=== PATIENT | female | born 1960 | race Caucasian/White ===

== ENCOUNTER 2017-10-27 22:54 | Inpatient (IN) | payer OTHER ==
[~2017-10-27] VITALS: Ht 165.1 cm; Wt 68.0 kg
[2017-10-27] MEDS ORDERED: DIGOXIN (22:56)
[2017-10-27] MEDS ORDERED: METOPROLOL (22:56)
[2017-10-27 22:59] VITALS: BP 114/74
[2017-10-27 23:12] LABS: ABSOLUTE BASOPHILS 0.1 thou/uL (0.0-0.2); ABSOLUTE EOSINOPHILS 0.2 thou/uL (0.0-0.7); ABSOLUTE LYMPHOCYTES 3.1 thou/uL (0.8-5.3); ABSOLUTE MONOCYTES 0.7 thou/uL (0.0-1.2); ABSOLUTE NEUTROPHILS 4.8 thou/uL (1.6-8.1); BASOPHILS 0.7 %; HEMATOCRIT 43.9 % (37.0-47.0); HEMOGLOBIN 14.3 gm/dL (12.0-15.0); LYMPHOCYTES 35.2 %; MCH 31.8 pg (26.0-34.0); MCHC 32.7 g/dL (28.0-37.0); MCV 97.4 fL (80.0-100.0); MONOCYTES 8.4 %; MPV 8.8 fl. (7.2-11.1); NUCLEATED RBCS 0 /100WBC; PLATELET COUNT* 318 thou/uL (150-400); POLYS 53.7 %; RBC 4.51 mil/uL (4.20-5.00); RDW-CV 12.9 % (10.5-14.5); WBC 8.9 thou/uL (4.0-11.0)
[2017-10-27 23:19] LABS: ANION GAP 10 mmol/L (7-16); BUN 10 mg/dL (7-18); CALCIUM 9.1 mg/dL (8.5-10.1); CHLORIDE 107 mmol/L (98-107); CO2 25 mmol/L (21-32); CREATININE 0.6 mg/dL (0.6-1.3); GLUCOSE 159 mg/dL (70-99); POTASSIUM 3.4 mmol/L (3.5-5.1); SODIUM 142 mmol/L (136-145)
[2017-10-27 23:23] LABS: URINE BILIRUBIN NEGATIVE (Negative); URINE BLOOD NEGATIVE (Negative); URINE CLARITY CLEAR; URINE COLOR STRAW; URINE GLUCOSE-RANDOM NEGATIVE (Negative); URINE KETONES NEGATIVE (Negative); URINE LEUKOCYTES-REFLEX 1+ (Negative); URINE NITRITE-REFLEX NEGATIVE (Negative); URINE PROTEIN NEGATIVE (Negative); URINE SPECIFIC GRAVITY <= 1.005 (1.005-1.030); URINE UROBILINOGEN 0.2 E.U./dl (0.2-1.0)
[2017-10-27 23:29] LABS: ALBUMIN 3.4 g/dL (3.4-5.0); ALKALINE PHOSPHATASE 99 U/L (46-116); NT-PRO BRAIN NAT PEPTIDE 58 pg/mL (<300); SGOT 15 U/L (15-37); SGPT 28 U/L (30-65); TOTAL BILIRUBIN 0.1 mg/dL (<0.1-1.0); TOTAL PROTEIN 6.9 g/dL (6.4-8.2); TROPONIN-I LEVEL <0.06 ng/mL (<0.06)
[2017-10-27 23:49] LABS: BACTERIA-REFLEX >30 Many /HPF (None Seen); SQUAMOUS 0-3 Few /LPF (0-3); URINE RBC 3-10 Few /HPF (0-2); URINE WBC-REFLEX 6-15 Few /HPF (0-5)
[2017-10-27 23:50] LABS: CASTS None Seen /LPF (None Seen); CRYSTALS None Seen /LPF (None Seen); MUCUS 0-3 Light strn/LPF (None Seen)
[2017-10-28 03:52] LABS: AMP/METHAMP Negative (Negative); BARBITURATES Negative (Negative); BENZODIAZEPINES Negative (Negative); COCAINE Negative (Negative); METHADONE Negative (Negative); OPIATES Negative (Negative); PCP Negative (Negative); THC Negative (Negative)
[2017-10-28 04:34] VITALS: BP 101/62
[2017-10-28 04:43] LABS: ABSOLUTE BASOPHILS 0.1 thou/uL (0.0-0.2); ABSOLUTE EOSINOPHILS 0.2 thou/uL (0.0-0.7); ABSOLUTE LYMPHOCYTES 3.1 thou/uL (0.8-5.3); ABSOLUTE MONOCYTES 0.7 thou/uL (0.0-1.2); ABSOLUTE NEUTROPHILS 4.6 thou/uL (1.6-8.1); BASOPHILS 0.9 %; HEMOGLOBIN 13.3 gm/dL (12.0-15.0); LYMPHOCYTES 36.2 %; MCH 32.5 pg (26.0-34.0); MCHC 33.3 g/dL (28.0-37.0); MCV 97.8 fL (80.0-100.0); MONOCYTES 7.9 %; MPV 8.8 fl. (7.2-11.1); NUCLEATED RBCS 0 /100WBC; PLATELET COUNT* 292 thou/uL (150-400); RBC 4.09 mil/uL (4.20-5.00); RDW-CV 13.3 % (10.5-14.5); WBC 8.7 thou/uL (4.0-11.0)
[2017-10-28 05:20] LABS: ALBUMIN 2.8 g/dL (3.4-5.0); ALKALINE PHOSPHATASE 80 U/L (46-116); ANION GAP 8 mmol/L (7-16); BUN 8 mg/dL (7-18); CALCIUM 8.3 mg/dL (8.5-10.1); CHLORIDE 112 mmol/L (98-107); CO2 24 mmol/L (21-32); CREATININE 0.5 mg/dL (0.6-1.3); GLUCOSE 103 mg/dL (70-99); POTASSIUM 4.3 mmol/L (3.5-5.1); SGOT 20 U/L (15-37); SGPT 27 U/L (30-65); SODIUM 144 mmol/L (136-145); TOTAL BILIRUBIN < 0.1 mg/dL (<0.1-1.0); TOTAL PROTEIN 5.4 g/dL (6.4-8.2)
[2017-10-28] MEDS ORDERED: ASPIR 8181 MG PO (10:16)
[2017-10-28] MEDS ORDERED: VENTOLIN HFA 1818 GM INH (10:16)
[2017-10-28] MEDS ORDERED: SINGULAIR 10 MG10 M1 PO (10:16)
[2017-10-28] MEDS ORDERED: LANOXIN 0.120.125 M1 PO (11:11)
[2017-10-28] MEDS ORDERED: DIGOXIN250 MCG PO (11:12)
[2017-10-28] MEDS ORDERED: LOPRESSOR25 PO (11:13)
[2017-10-28 12:44] VITALS: BP 113/58
[2017-10-28 12:45] VITALS: BP 116/60
[2017-10-28 16:10] VITALS: BP 115/63
--- NOTE | 2017-10-28 16:35 | 2DMMODE ---
[place] [address] 2 D/M-MODE ECHOCARDIOGRAM Name: PATEL DOOLEY Room: [address] IN [facility]#: [id number] Admission: 10/28/17 Attend Phys: Peewee Vera Discharge: Date of : 58 Date of Service: 10/28/17 1634 Report #: [id number] THIS REPORT FOR: //name// APPROVED REPORT Study performed: 10/28/2017 10:02:46 EXAM: Comprehensive 2D, Doppler, and color-flow Echocardiogram Patient Location: In-Patient Room #: er Status: routine BSA: 1.75 HR: 67 bpm BP: 113/66 mmHg Rhythm: NSR Other Information Study Quality: Good Indications SVT 2D Dimensions LVEF(%): 69.37 (>50%) IVSd: 7.28 (7-11mm) LVOT Diam: 19.55 (18-24mm) LVDd: 46.50 mm PWd: 9.91 (7-11mm) Ascending Ao: 31.99 (22-36mm) LVDs: 28.39 (25-40mm) Aortic Root: 31.25 mm Franco's LVEF: 69.37 % Volumes Left Atrial Volume (Systole) LA ESV Index: 19.90 mL/m2 Aortic Valve AoV Peak Benjamin.: 1.17 m/s AO Peak Gr.: 5.43 mmHg LVOT Max P.06 mmHg AO Mean Gr.: 3.11 mmHg LVOT Mean P.57 mmHg LVOT Max V: 1.01 m/s AO V2 VTI: 25.91 cm LVOT Mean V: 0.55 m/s FELIPE (VTI): 2.52 cm2 LVOT V1 VTI: 21.72 cm Mitral Valve E/A Ratio: 1.17 [place] [address] 2 D/M-MODE ECHOCARDIOGRAM Name: PATEL DOOLEY Room: [address] IN .R.#: [id number] Admission: 10/28/17 Attend Phys: Peewee Vera Discharge: Date of : 58 Date of Service: 10/28/17 1634 Report #: [id number] MV Decel. Time: 203.05 ms MV E Max Benjamin.: 0.88 m/s MV PHT: 58.88 ms MVA (PHT): 3.74 cm2 TDI E/Lateral E': 6.77 E/Medial E': 8.00 Medial E' Benjamin.: 0.11 m/s Lateral E' Benjamin.: 0.13 m/s Pulmonary Valve PV Peak Benjamin.: 0.90 m/s PV Peak Gr.: 3.27 mmHg Left Ventricle The left ventricle is normal size. There is normal LV segmental wall motion. There is normal left ventricular wall thickness. Left ventricular systolic function is normal. LVEF is 55-60%. The left ventricular diastolic function is normal. Right Ventricle The right ventricle is normal size. The right ventricular systolic function is normal. Atria The left atrium size is normal. The right atrium size is normal. Aortic Valve The aortic valve is normal in structure. No aortic regurgitation is present. There is no aortic valvular stenosis. Mitral Valve The mitral valve is normal in structure. There is no mitral valve regurgitation noted. No evidence of mitral valve stenosis. Tricuspid Valve The tricuspid valve is normal in structure. There is no tricuspid valve regurgitation noted. Pulmonic Valve The pulmonary valve is normal in structure. There is no pulmonic valvular regurgitation. Great Vessels The aortic root is normal in size. IVC is normal in size and collapses with >50% [place] [address] 2 D/M-MODE ECHOCARDIOGRAM Name: PATEL DOOLEY Room: [address] IN .R.#: [id number] Admission: 10/28/17 Attend Phys: Peewee Vera Discharge: Date of : 58 Date of Service: 10/28/17 1634 Report #: [id number] Pericardium There is no pericardial effusion. <Conclusion> The left ventricle is normal size. There is normal left ventricular wall thickness. Left ventricular systolic function is normal. LVEF is 55-60%. The left ventricular diastolic function is normal. <ELECTRONICALLY SIGNED> By: Abdirizak Tirado MD, FACC 10/28/17 1634 1634 1634 Abdirizak Tirado MD, FACC /INF
--- NOTE | 2017-10-28 17:29 | EKG ---
[place] [address] ELECTROCARDIOGRAM REPORT Name: PATEL DOOLEY Room: [address] IN [facility]#: [id number] Admission: 10/28/17 Attend Phys: Francois Severino Discharge: Date of : 58 Report #: [id number] THIS REPORT FOR: //name// [facility] ED Test Date: 2017-10-27 Test Time: 23:04:24 Pat Name: PATEL DOOLEY Department: Room: [facility] Gender: F Safety Compliance Specialist: VINNY Choi : 1960 Requested By: Tika Major Order Number: [id number] MD: Abdirizak Tirado Measurements Intervals [place] Rate: 95 P: 56 [place]: 167 QRS: -30 QRSD: 87 T: 14 QT: 336 QTc: 423 Interpretive Statements Sinus rhythm Left axis deviation Delayed R-wave progression No previous ECG available for comparison Electronically Signed On 10-28-2017 17:29:14 HAND ZIPPER TRIMMER by Abdirizak Tirado [email or web address] <ELECTRONICALLY SIGNED> By: Abdirizak Tirado MD, [facility] 10/28/17 1729 2304 2304 Abdirizak Tirado MD, FACC /EPI
[2017-10-28 20:00] VITALS: BP 92/53
[2017-10-28 21:25] VITALS: BP 109/69
[2017-10-29] VITALS: BP 104/54
[2017-10-29 02:07] LABS: GLYCOHEMOGLOBIN (HGB A1C) 5.6 % (4.8-5.6)
[2017-10-29 04:02] VITALS: BP 146/59
[2017-10-29 05:04] LABS: HEMATOCRIT 37.4 % (37.0-47.0); HEMOGLOBIN 12.4 gm/dL (12.0-15.0); MCH 32.4 pg (26.0-34.0); MCHC 33.2 g/dL (28.0-37.0); MCV 97.8 fL (80.0-100.0); MPV 9.3 fl. (7.2-11.1); RBC 3.82 mil/uL (4.20-5.00); RDW-CV 13.3 % (10.5-14.5); WBC 6.8 thou/uL (4.0-11.0)
[2017-10-29 05:15] LABS: CALCIUM 8.5 mg/dL (8.5-10.1); CREATININE 0.6 mg/dL (0.6-1.3); MAGNESIUM 1.7 mg/dL (1.8-2.4); POTASSIUM 4.1 mmol/L (3.5-5.1)
[2017-10-29 08:11] VITALS: BP 95/50
--- NOTE | 2017-10-29 12:28 | EKG ---
[place] [address] ELECTROCARDIOGRAM REPORT Name: PATEL DOOLEY Room: [address] ADM IN [facility].#: [id number] Admission: 10/28/17 Attend Phys: Francois Severino Discharge: Date of : 58 Report #: [id number] THIS REPORT FOR: //name// [facility] Test Date: 2017-10-28 Test Time: 21:28:00 Pat Name: PATEL DOOLEY Department: Room: [address] Gender: F Water Mechanic: JACEK : 1960 Requested By: Peewee Vera Order Number: [id number] Johana MD: Shaun Jones Measurements Intervals [place] Rate: 64 P: 70 [place]: 173 QRS: 10 QRSD: 94 T: 30 QT: 403 QTc: 416 Interpretive Statements Sinus rhythm Borderline low voltage, extremity leads Consider anterior infarct Compared to ECG 10/27/2017 23:04:24 no change Electronically Signed On 10-29-2017 12:28:48 J2EE ENGINEER by Shaun Jones [email or web address] <ELECTRONICALLY SIGNED> By: Shaun Jones MD, [facility] 10/29/171227 27 27 Shaun Jones MD, [facility] /EPI
--- NOTE | 2017-10-29 12:33 | EKG ---
[place] [address] ELECTROCARDIOGRAM REPORT Name: PATEL DOOLEY Room: [address] ADM IN [facility].#: [id number] Admission: 10/28/17 Attend Phys: Francois Severino Discharge: Date of : 58 Report #: [id number] THIS REPORT FOR: //name// [facility] Test Date: 2017-10-29 Test Time: 08:28:46 Pat Name: PATEL DOOLEY Department: Room: [address] Gender: F Air Chief Marshal: : 1960 Requested By: Abdirizak Tirado Order Number: [id number] Johana MD: Shaun Jones Measurements Intervals [place] Rate: 52 P: 67 [place]: 179 QRS: 61 QRSD: 95 T: 16 QT: 430 QTc: 400 Interpretive Statements Sinus bradycardia Electronically Signed On 10-29-2017 12:33:26 REMELT FURNACE EXPEDITER by Shaun Jones [email or web address] <ELECTRONICALLY SIGNED> By: Shaun Jones MD, [facility] 10/29/17 1233 0828 0828 Shaun Jones MD, FACC /EPI
[2017-10-29 12:44] VITALS: BP 123/63
[2017-10-29 15:48] VITALS: BP 130/67
--- NOTE | 2017-10-29 17:12 | CARDNUC ---
[place] [address] CARDIAC NUCLEAR IMAGING REPORT Name: DOOLEYPATEL Room: [address] IN [facility]#: [id number] Admission: 10/28/17 Attend Phys: Peewee Vera Discharge: Date of : 58 Date of Service: 10/29/17 1712 Report #: [id number] THIS REPORT FOR: //name// APPROVED REPORT Exam: Nuclear Stress Test Indication: Chest pain, svt Patient Location: In-Patient Room #: 201 Stress Tech: Belkys Verdugo Stress Nurse: Mariana Archuleta RN NM Tech:JAQUELINE Gilmore Ht: 5 ft 5 in Wt: 150 lbs BSA: 1.75 m2 BMI: 24.95 Medical History Medical History: svt, copd Allergies: sulfa, doxycycline, diltiazem, buprion Cardiac Risk Factors: age, smoking Physical Disabilities: general weakness Stress Test Details Stress Test: Pharmacologic stress testing performed using 0.4 mg of regadenoson per 5 mL given IV over 10 seconds. Reason for pharmacologic stress test: general weakness. HR Resting HR: 61 bpm Max Heart Rate (APMHR): 163 bpm Max HR Achieved: 100 bpm Target HR (85% APMHR): 138 bpm % of APMHR: 61 Recovery HR: 79 bpm BP Resting BP: 105/68 mmHg Max BP: 121/65 mmHg ECG Resting ECG: Sinus Rhythm, normal EKG Stress ECG: Sinus Rhythm, normal EKG ST Change: None Arrhythmia: None Recovery ECG: Sinus Rhythm, normal EKG Recovery ST Change: None Recovery Arrhythmia: [place] [address] CARDIAC NUCLEAR IMAGING REPORT Name: PATEL DOOLEY Nhan Room: [address]#: [id number] Admission: 10/28/17 Attend Phys: Peewee Vera Discharge: Date of : 58 Date of Service: 10/29/17 1712 Report #: [id number] Clinical Reason for Termination: Completed protocol Exercise duration: 0 min sec Exercise capacity: 1 METs Functional Aerobic Impairment 61% The patient tolerated Lexiscan infusion without significant symptoms. Nurse Comments pt tolerated well Stress ECG Conclusion The baseline 12-lead elect cardiac exam shows normal sinus rhythm with no significant ST or T-wave abnormalities. EKGs during and post Lexiscan infusion showed sinus rhythm with no significant ST or T wave changes when compared to baseline. There were no stress-induced arrhythmias. NM EXAM: Myocardial Perfusion REST/STRESS Imaging Protocol: Rest Tc-99m/Stress Tc-99m 1 day Resting Data Rest SPECT myocardial perfusion imaging was performed in supine position 30 minutes following the intravenous injection of 12.0 mCi of Tc-99m Sestamibi. Time of rest injection: 0950 Time of rest imagin The images were gated to evaluate regional wall motion and calculate left ventricular ejection fraction. Administration Route: IV Pharmacologic Stress Pharmacologic stress test was performed by injecting Regadenoson 0.4 mg IV push followed by the intravenous injection of 35.0 mCi of Tc-99m Sestamibi. Time of stress injection: 1115 Time of stress imagin Administration Route: IV Gated Stress SPECT was performed 40 minutes after stress injection. The images were gated to evaluate regional wall motion and calculate left ventricular ejection fraction. Prone imaging [place] [address] CARDIAC NUCLEAR IMAGING REPORT Name: PATEL DOOLEY Room: [address]#: [id number] Admission: 10/28/17 Attend Phys: Peewee Vera Discharge: Date of : 58 Date of Service: 10/29/17 1712 Report #: [id number] Study: Good Artifact: No artifact Study Data At rest, the left ventricular ejection fraction was 62%.. Post stress, the left ventricular ejection was 70%.. TID = 0.99. Perfusion There is a focal reversible defect of the apex of mild intensity. No other defects are identified. Wall Motion Normal left ventricular wall motion. Nuclear Conclusion ECG Findings: negative for ischemia Clinical Findings: negative for ischemia Nuclear Findings: positive for ischemia Exercise Capacity: not assessed Left Ventricular Function: normal Risk Study: moderate Myocardial perfusion images show a focal reversible defect of mild intensity involving the apex. No other significant defects are identified. Overall left ventricular systolic function appears normal on gated studies. This is a moderate risk study based on focal apical ischemia. <Conclusion> The baseline 12-lead elect cardiac exam shows normal sinus rhythm with no significant ST or T-wave abnormalities. EKGs during and post Lexiscan infusion showed sinus rhythm with no significant ST or T wave changes when compared to baseline. There were no stress-induced arrhythmias. <ELECTRONICALLY SIGNED> By: Abdirizak Tirado MD, FACC 10/29/171711 11 11 Abdirizak Tirado MD, FACC /INF
[2017-10-29 20:00] VITALS: BP 107/59
[2017-10-30] VITALS: BP 118/64
[2017-10-30 04:12] VITALS: BP 118/65
[2017-10-30 07:57] VITALS: BP 125/69
[2017-10-30] MEDS ORDERED: SORINE 80 MG TA80 M1 PO (11:10)
[2017-10-30 11:21] VITALS: BP 125/69
[2017-10-30 12:28] VITALS: BP 125/65
--- NOTE | 2017-10-30 13:46 | EKG ---
[place] [address] ELECTROCARDIOGRAM REPORT Name: PATEL DOOLEY Room: [address] ADM IN [facility].#: [id number] Admission: 10/28/17 Attend Phys: Francois Severino Discharge: Date of : 58 Report #: [id number] THIS REPORT FOR: //name// [facility] Test Date: 2017-10-30 Test Time: 08:12:36 Pat Name: PATEL DOOLEY Department: Room: [address] Gender: F Program Coordinator For [employer]: GINNA : 1960 Requested By: Abdirizak Tirado Order Number: [id number] Johana MD: Blade Apple Measurements Intervals [place] Rate: 58 P: 68 [place]: 173 QRS: 54 QRSD: 97 T: 18 QT: 428 QTc: 421 Interpretive Statements Sinus rhythm Borderline low voltage, extremity leads Compared to ECG 10/29/2017 08:28:46 Sinus bradycardia no longer present Electronically Signed On 10-30-2017 13:46:23 BED WORKER by Blade Apple [email or web address] <ELECTRONICALLY SIGNED> By: Manohar Apple MD, [facility] 10/30/17 1346 1 1 Manohar Apple MD, [facility] /EPI
--- NOTE | 2017-11-01 08:34 | CON ---
[address] [address] CONSULTATION Name: MIAHPATEL Nhan Room: [address]#: [id number] Admission: 10/28/17 Attend Phys: Francois Severino Discharge: 10/30/17 Date of : 58 Report #: [id number] THIS REPORT FOR: //name// CC: MARIANNE physician/PCP Peewee Vera TYPE OF REPORT: Cardiology consultation. INDICATION: SVT. HISTORY OF PRESENT ILLNESS: The patient is a 56-year-old white female who has a history of recurrent SVT. She reports the symptoms first started year or two ago. She has had approximately 15 episodes since. She had recurrence of her SVT last night about 9:00. EMS personnel gave her Adenocard converting her to sinus rhythm. With this episode, she had midsternal chest discomfort. Symptoms resolved after cardioversion. The patient was admitted to the hospital for further evaluation. Initial EKG from the EMS shows SVT with ST-segment depression in mostly, is except for ST-elevation in aVR. She denies any history of myocardial infarction or coronary artery disease. Subsequent EKG shows sinus rhythm with no acute ST or T-wave abnormalities. Initial troponin was less than 0.06. At the time of my interview, she was pain free. PAST MEDICAL HISTORY: 1. SVT. 2. COPD. 3. Chronic tobacco abuse. PAST SURGICAL HISTORY: None. FAMILY HISTORY: The patient's brother had heart disease. SOCIAL HISTORY: The patient is single. She smokes one-half to a pack of cigarettes daily. 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 She does not drink alcohol. ALLERGIES: SULFA, DOXYCYCLINE, DILTIAZEM and BUPROPION. CURRENT MEDICATIONS: Digoxin and metoprolol. REVIEW OF SYSTEMS: A 14-point review of systems is positive for seizures from Wellbutrin, cough productive of yellow sputum, COPD, palpitations, chest discomfort, dyspnea and orthopnea. She wears reading glasses without acute visual loss and has depression and anxiety and medical allergies as outlined above. Otherwise, 14-point review of systems unremarkable. PHYSICAL EXAMINATION: VITAL SIGNS: Blood pressure 116/60 and pulse 68 and regular. GENERAL: This is an elderly female who appears to [place] [address] CONSULTATION Name: PATEL DOOLEY Room: [address]#: [id number] Admission: 10/28/17 Attend Phys: Francois Severino Discharge: 10/30/17 Date of : 58 Report #: [id number] affect appropriate. HEENT: Extraocular muscles intact. Mucous membranes moist. NECK: Shows no jugular venous distention. There are no carotid bruits. CHEST: Reveals clear lung espitia without wheezes, rales or rhonchi. CARDIOVASCULAR: Reveals a regular rhythm with normal S1 and S2. I do not appreciate gallop or murmur. ABDOMEN: Reveals normal bowel sounds. The abdomen is soft and nontender. EXTREMITIES: Shows no edema. Peripheral pulses are palpable. SKIN: Warm and dry. IMPRESSION AND RECOMMENDATIONS: 1. Recurrent supraventricular tachycardia. The patient has had multiple breakthrough episodes, no traditional medications. We will start sotalol 80 mg twice daily and obtain EKG in a.m. We will also obtain echocardiogram to evaluate for any type of underlying cardiomyopathy. 2. Chest pain. We will obtain stress testing to evaluate for possible underlying ischemia. Further intervention will be pending the results of that study. 3. Tobacco abuse, smoking cessation strongly advised. <ELECTRONICALLY SIGNED> By: Abdirizak Tirado MD, FACC 11/01/17 0834 1606 2317Micmillie Tirado MD, FACC /nt
== END 2017-10-30 14:00 | disposition home or self-care (01) | DRG 690 ==
LOC: M.ERS 22:54 → EDBD 10-28 01:12 → M.TBA-ER 10-28 01:12 → M.2W 10-28 01:12
PROVIDERS: Emergency Medicine; Internal Medicine; ADMIT Internal Medicine
DX: N39.0 Urinary tract infection, site not specified (principal); I47.1 Supraventricular tachycardia; J44.9 Chronic obstructive pulmonary disease, unspecified; F17.210 Nicotine dependence, cigarettes, uncomplicated; Z88.2 Allergy status to sulfonamides; Z88.8 Allergy status to other drugs, medicaments and biological substances; Z82.49 Family history of ischemic heart disease and other diseases of the circulatory system; Z71.6 Tobacco abuse counseling